=== PATIENT | female | born 1940 | race Caucasian/White ===

== ENCOUNTER 2017-02-22 13:05 | Emergency (ER) | payer OTHER ==
[2017-02-22 13:13] VITALS: TEMP 98.2
[2017-02-22] MEDS ORDERED: NS 1,000 ML IV ONE (13:25)
--- NOTE | 2017-02-22 13:27 | EDPHY ---
H & P Time Seen by Provider: 02/22/17 13:18 HPI/ROS: CHIEF COMPLAINT: Vaginal bleeding HISTORY OF PRESENT ILLNESS: Patient has been having vaginal spotting for the last 2 months. She had her ovaries removed in 2016 down at [facility] in [place], it was performed because of a concern about cancer but she did not lathe turner to have a malignancy. [place] and has been living in [facility] so has not had her spotting evaluated since it started. Spotting she describes as light and blood in her underwear but not with hematuria or blood in her stool. Almost daily, no clots. Associated over the last week with dizziness and lightheadedness or standing and some shortness of breath on exertion. REVIEW OF SYSTEMS: Eye: no change in vision ENT: no sore throat Cardiac: no chest pain or syncope Pulmonary: no cough or SOB Abdomen: [no vomiting, or abdominal pain. Intermittent diarrhea but no melena or bloody stools Musculoskeletal: no back pain Skin: no rash Neuro: no headache Constitutional: no fever : no urinary symptoms A comprehensive 10 point review of systems is otherwise negative aside from elements mentioned in the history of present illness. PAST MEDICAL HISTORY: Gout and appendectomy and ovarian surgery and high cholesterol Social history: Primary care Alyssa Beaulieu, in [place] until last week General Appearance: Alert and conversant, cooperative. Eyes: No scleral icterus. Pale conjunctiva. ENT, Mouth: Normal mucous membranes. Respiratory: Normal respiratory effort, breath sounds equal, lungs are clear to auscultation. Cardiovascular: Regular rate and rhythm. Tachycardic Gastrointestinal: Abdomen is soft and non tender. Neurological: Alert, face symmetric, normal motor and sensory in extremities. Skin: Warm and dry, no rashes. Musculoskeletal: No peripheral edema. Psychiatric: Not agitated. Emergency Department course/MDM: Plan for CBC, EKG, pelvic exam with probable pelvic ultrasound. 1348: Pelvic exam performed as patient's nurse does not show intra vaginal mass or laceration or active bleeding. Labs reviewed including normal hemoglobin and hematocrit, added chest x-ray D-dimer and troponin. 1416: Chest x-ray personally interpreted is negative for infiltrate, mediastinum noted a slightly wide was similar to previous. Troponin and D-dimer negative, low pretest likelihood for pulmonary embolism. EKG not acutely ischemic. 1538: US per Satish shows 4.8cm endometrial thickness, otherwise negative. Results discussed, speaking in full sentences, heart rate about 90. Will be referred as an outpatient to obstetrician gynecologist. Smoking Status: Never smoked Constitutional: Initial Vital Signs Temperature (C) 36.8 C 02/22/17 13:08 Heart Rate 114 H 02/22/17 13:08 Respiratory Rate 28 H 02/22/17 13:08 Blood Pressure 150/86 H 02/22/17 13:08 O2 Sat (%) 94 02/22/17 13:08 O2 Delivery Mode Room Air Allergies/Adverse Reactions: sulfacetamide sodium [From Sulfacet-R] Allergy (Verified 02/22/17 13:08) sulfur [From Sulfacet-R] Allergy (Verified 02/22/17 13:08) Home Medications: Medication Instructions Recorded Allopurinol 09/27/15 Lipitor 09/27/15 Medical Decision Making - Diagnostics EKG Interpretation: 12-lead EKG interpreted by me; official reading is in trace master. My interpretation is sinus tachycardia with PVCs rate 104 Imaging Results: Imaging Impressions Chest X-Ray 02/22/17 13:48 Impression: 1. No active cardiopulmonary disease seen. 2. The patient is rotated toward the right which causes some thickening of the right mediastinal structures. 3. Mild prominent interstitial markings suspected at the lung periphery that can be said from some underlying chronic interstitial disease. - Data Points Laboratory Results: Laboratory Results 02/22/17 13:30 02/22/17 13:30 02/22/17 02/22/17 02/22/17 13:35 13:35 13:30 WBC RBC Hgb Hct MCV MCH MCHC RDW Plt Count MPV Neut % (Auto) Lymph % (Auto) Barren % (Auto) Eos % (Auto) Baso % (Auto) Nucleat RBC Rel Count Absolute Neuts (auto) Absolute Lymphs (auto) Absolute Monos (auto) Absolute Eos (auto) Absolute Basos (auto) Absolute Nucleated RBC Immature Gran % Immature Gran # D-Dimer 0.38 ug/mLFEU ug/mLFEU (0.00-0.50) Sodium Potassium Chloride Carbon Dioxide Anion Gap BUN Creatinine Estimated GFR Glucose Calcium Troponin I < 0.012 ng/mL ng/mL (0.000-0.034) Patient ABO/Rh O POSITIVE Antibody Screen NEGATIVE 01/10/18 01/10/18 13:30 13:30 WBC 9.13 10^3/uL 10^3/uL (3.80-9.50) RBC 4.58 10^6/uL 10^6/uL (4.18-5.33) Hgb 14.5 g/dL g/dL (12.6-16.3) Hct 43.9 % % (38.0-47.0) MCV 95.9 fL fL (81.5-99.8) MCH 31.7 pg pg (27.9-34.1) MCHC 33.0 g/dL g/dL (32.4-36.7) RDW 15.0 % % (11.5-15.2) Plt Count 215 10^3/uL 10^3/uL (150-400) MPV 9.4 fL fL (8.7-11.7) Neut % (Auto) 62.7 % % (39.3-74.2) Lymph % (Auto) 27.1 % % (15.0-45.0) Barren % (Auto) 8.4 % % (4.5-13.0) Eos % (Auto) 1.0 % % (0.6-7.6) Baso % (Auto) 0.5 % % (0.3-1.7) Nucleat RBC Rel Count 0.0 % % (0.0-0.2) Absolute Neuts (auto) 5.72 10^3/uL 10^3/uL (1.70-6.50) Absolute Lymphs (auto) 2.47 10^3/uL 10^3/uL (1.00-3.00) Absolute Monos (auto) 0.77 10^3/uL 10^3/uL (0.30-0.80) Absolute Eos (auto) 0.09 10^3/uL 10^3/uL (0.03-0.40) Absolute Basos (auto) 0.05 10^3/uL 10^3/uL (0.02-0.10) Absolute Nucleated RBC 0.00 10^3/uL 10^3/uL (0-0.01) Immature Gran % 0.3 % % (0.0-1.1) Immature Gran # 0.03 10^3/uL 10^3/uL (0.00-0.10) D-Dimer Sodium 143 mEq/L mEq/L (135-145) Potassium 4.4 mEq/L mEq/L (3.5-5.2) Chloride 106 mEq/L mEq/L (97-110) Carbon Dioxide 23 mEq/l mEq/l (22-31) Anion Gap 14 mEq/L mEq/L (8-16) BUN 19 mg/dL mg/dL (7-23) Creatinine 1.1 mg/dL H mg/dL (0.6-1.0) Estimated GFR 48 Glucose 104 mg/dL H mg/dL (70-100) Calcium 9.8 mg/dL mg/dL (8.5-10.4) Troponin I Patient ABO/Rh Antibody Screen Medications Given: Discontinued Medications Sodium Chloride (Ns) 1,000 mls @ 0 mls/hr IV EDNOW ONE; Wide Open PRN Reason: Protocol Stop: 02/22/17 13:26 Last Admin: 02/22/17 13:44 Dose: 1,000 mls Departure - Departure Clinical Impression: History of dysmenorrhea Condition: Good Instructions: Dysmenorrhea (ED) Additional Instructions: Normal blood counts, not anemic. Normal chest X-ray. Negative testing for blood clot in lung. Referrals: Alyssa Beaulieu MD [Primary Care Provider] - As per Instructions Leidy Newman MD [Medical Doctor] - As per Instructions (Please call today for office follow-up with Gynecology, you probably need an endometrial biopsy to evaluate for the possibility of endometrial cancer)
--- NOTE | 2017-02-22 13:36 | CPEKG ---
Heart Rate: 104 RR Interval: 577 P-R Interval: 184 QRSD Interval: 76 QT Interval: 352 QTC Interval: 463 P Carson: 49 QRS Carson: 29 T Wave Carson: -6 EKG Severity - BORDERLINE ECG - EKG Impression: SINUS TACHYCARDIA EKG Impression: VENTRICULAR PREMATURE COMPLEX EKG Impression: BORDERLINE T ABNORMALITIES, INFERIOR LEADS Electronically Signed By: Nasir Penny 22-Feb-2017 13:38:30
[2017-02-22 13:43] LABS: PLATELET COUNT 215 10^3/uL (150-400)
[2017-02-22 15:55] VITALS: BP 151/81; PULSE 97; RESP 18; O2SAT 96
== END 2017-02-22 16:02 | disposition home or self-care (01) ==
DX: Z87.42 Personal history of other diseases of the female genital tract (principal); E86.9 Volume depletion, unspecified

== ENCOUNTER → 2018-05-23 | Outpatient (CLI) | payer OTHER | LOC: FIMAGING 14:36 | PROVIDERS: ATTEND Family Medicine | DX: J42 Unspecified chronic bronchitis (principal); I51.7 Cardiomegaly; M41.85 Other forms of scoliosis, thoracolumbar region ==